=== PATIENT | female | born 2000 | race Caucasian/White ===

== ENCOUNTER 2024-08-15 10:39 | Emergency (ER) | payer MEDICAID, SELFPAY ==
[2024-08-15 10:54] VITALS: BP 140/79; PULSE 85; RESP 18; TEMP 36.7; O2SAT 99; BMI 27.5
--- NOTE | 2024-08-15 12:09 | ED_ITS ---
HPI - Wound/Laceration General Chief Complaint: Wound/Laceration Stated Complaint: Lac on arm from yesterday Time Seen by Provider: 08/15/24 11:16 Source: patient Mode of arrival: ambulatory Limitations: no limitations History of Present Illness ED Provider: MATHEUS ERNANDEZ PA-C HPI narrative: 24 year old female presents to the ED today for evaluation of left wrist laceration sustained last night. She reports accidentally cutting her left wrist with a knife last night while intoxicated. She states this was not an attempt at self harm and merely an accident. She did not come in for evaluation last night as she was intoxicated. She reports minimal pain to the area. Denies any surrounding redness, drainage or active bleeding. She believes her tetanus was updated within the last 5 years. Related Data Previous Rx's ?Medication ?Instructions ?Recorded amoxicillin 875 mg-potassium 1 tab PO BID 7 days #14 tabs 08/15/24 clavulanate 125 mg tablet Allergies Allergy/AdvReac Type Severity Reaction Status Date / Time haloperidol [From HALDOL] Allergy Severe ANAPHYLAXIS Verified 08/15/24 10:57 Review of Systems Review of Systems: Constitutional: No fever, chills, fatigue, night sweats, weight changes ENT/Mouth: No ear pain, hearing loss, nasal congestion, sinus pain, rhinorrhea, sore throat Eyes: No eye pain, swelling, redness, vision changes, discharge Cardio: No chest pain, palpitations, MAYNARD, orthopnea, peripheral edema Pulm: No SOB, cough, sputum, wheezing, dyspnea, hemoptysis GI: No nausea, vomiting, hematemesis, abdominal pain, diarrhea, constipation, hematochezia, melena : No irregular bleeding, dysuria, frequency, urgency, hesitancy, hematuria, flank pain, urinary flow changes, urinary incontinence or retention MSK: No back pain, neck pain, joint pain, myalgias Skin: No lesions, rashes, +wrist laceration Neuro: No weakness, numbness, paresthesias, LOC, dizziness, headache Psych: No anxiety/panic, depression, SI/HI, AH/VH All other systems reviewed and are negative. [facility] Past Medical History Attestation statement: The following information was validated with the patient. Source: old records reviewed and nursing notes reviewed Social History Social History Advance Directives: No Advance Directives Information Provided: Yes Do you have a plan to hurt others: No Plan Physical Exam Vital Signs: Vital Signs: Last Vital Signs Temp 98.1 F 08/15/24 10:54 Pulse 85 08/15/24 10:54 Resp 18 08/15/24 10:54 BP 140/79 H 08/15/24 10:54 Pulse Ox 99 08/15/24 10:54 O2 Del Method Room Air 08/15/24 10:54 BMI result Body Mass Index 27.5 hypertensive, vitals otherwise wnl General: Well appearing, in no acute distress. Skin: Warm, dry, intact. No rashes or lesions. Head: Normocephalic, atraumatic. Cardiac: Chest wall symmetric. RRR Lungs: Normal respiratory effort without accessory muscle use. CTA bilaterally? Back: No midline spinous or paraspinal tenderness. No step off deformity. Ext: +2cm superficial linear laceration noted to ventral aspect of left wrist, no foreign body. No active bleeding. Sensation intact. Full ROM intact to left wrist. 2+ radial and ulnar pulse intact. Cap refill less than 2 seconds. Neuro: AOx3. Normal speech. Ambulating with steady gait. Course Course Course Narrative: Patient states that she believes her tetanus was updated within the last 5 years and does not wish to have it updated today. Laceration extensively irrigated with saline and iodine. Laceration repaired. See procedure note. Patient tolerated well. Will start patient on prophylactic Augmentin. advised to return for suture removal. Patient has remained stable throughout ED visit today. Discussed worrisome signs and symptoms and when to return to the ED. All questions answered at this time. Patient is agreeable with disposition and stable for discharge. Medications Administered Discontinued Medications Generic Name Dose Route Start Last Admin Trade Name Freq PRN Reason Stop Dose Admin Lidocaine HCl 5 ml 08/15/24 12:11 08/15/24 12:34 Lidocaine Hcl 1 % Mpf 5 Ml Vial INFILTRATI 08/15/24 12:12 5 ml ONCE ONE Administration Ondansetron HCl 4 mg 08/15/24 13:19 08/15/24 13:26 Ondansetron Odt 4 Mg Tab.Rapdis TRANSLINGU 08/15/24 13:20 4 mg ONCE ONE Administration Medical Decision Making Medical Decision Making MDM Narrative: 24 year old female presents to the ED today for evaluation of left wrist lac eration sustained last night. Patient is hypertensive, vitals otherwise WNL. She is lying comfortably on the exam bed in no acute distress. On exam, there is a 2cm superficial linear laceration noted to ventral aspect of left wrist, no foreign body. No active bleeding. Sensation intact. Full ROM intact to left wrist. 2+ radial and ulnar pulse intact. Cap refill less than 2 seconds. Differential diagnosis includes abrasion, laceration. Unlikely ligament/tendon injury, fracture, neurovascular compromise, threat to limb. Plan for laceration repair and disposition. Differential Diagnosis Differential Diagnoses: The differential diagnosis associated with the presentation includes as above Admission/Observation Not indicated External Record Review External record reviewed: Inpatient record Prescription Management I considered prescription management with: Pain Medication and Antibiotic Social Determinants Patient?s care significantly limited by Social Determinants of Health including: Other Social Determinant of Health Procedures Laceration Laceration 1: Site: upper extremity (wrist) Side (If applicable): left Size (cm): 2 Description: linear Depth: simple, single layer Local Anesthetic: lidocaine 1% Amount of anesthesia used (mL): 5 Pre-repair: wound explored, irrigated extensively and deep structures in tact Skin layer closed with: nylon Size (cm): 4-0 Number of sutures: 6 Technique: simple, interrupted Critical Care Time Critical Care Time Critical Care Time: No Discharge Plan Discharge Clinical Impression: Laceration of left wrist Patient Disposition: Home, Self-Care Instructions: Care For Your Stitches (ED), Laceration (ED) Additional Instructions: You have been evaluated in the Emergency Department today for a laceration to your left wrist. Your laceration was repaired in the ED with 6 sutures. Please keep the area surrounding the laceration clean and dry. Do not wet the area for at least 24 hours. After that, you may wash the area and pat dry. Please keep the area out of the sunlight for the next 6 months to help prevent scarring.? If you develop redness or swelling at the site of your laceration please come back to the ER for a wound check. I recommend you take 600mg ibuprofen every 6 hours or tylenol 650mg every 6 hours as needed for pain. If needed, you can alternate these medications so that you take one medication every 3 hours. For example, at noon take ibuprofen, then at 3pm take tylenol, then at 6pm take ibuprofen. Please follow up with your primary care physician in 7-10 days for suture removal. You can also return to the ER or another urgent care facility for this service. Return to the Emergency Department if you experience discharge from your laceration, redness around your laceration, warmth around your laceration, fever, vomiting, numbness, tingling, or any other concerning symptoms. In the case of an emergency call 911. Prescriptions: New amoxicillin-pot clavulanate 875-125 mg tablet 1 tab PO BID 7 Days Qty: 14 0RF Referrals: [facility] [place] Group] [facility] [place] [facility] [Provider Group] [facility] [place] [facility] [Provider Group] Print Language: Kazakh
[2024-08-15] MEDS: Lidocaine HCl 1 % MPF 5 ML VIAL INFILTRATI (12:34)
[2024-08-15] MEDS: Ondansetron ODT 4 MG TAB.RAPDIS TRANSLINGU (13:26)
[2024-08-15 14:09] VITALS: BP 140/79; PULSE 85; RESP 18; TEMP 36.7; O2SAT 99
== END 2024-08-15 14:10 | disposition home or self-care (01) ==
PROVIDERS: Emergency Provider Emergency Medicine
DX: S61.512A Laceration without foreign body of left wrist, initial encounter (principal); M25.532 Pain in left wrist; W26.0XXA Contact with knife, initial encounter; Y93.89 Activity, other specified; Y92.89 Other specified places as the place of occurrence of the external cause; Y99.8 Other external cause status
CPT/HCPCS: 12001; 99282; 99284; J2003

== ENCOUNTER 2024-08-20 13:59 | Emergency (ER) | payer MEDICAID, SELFPAY ==
--- NOTE | ~2024-08-20 | XR_ITS ---
EXAMINATION: XR WRIST, LEFT CLINICAL INFORMATION: wound COMPARISON: None available. TECHNIQUE: PA, lateral, and oblique views of the left wrist. FINDINGS: The bones and soft tissues are normal. No fracture. Alignment is anatomic with normal joint spaces. No erosions or abnormal soft tissue calcifications. XR/XR wrist LT min 3V IMPRESSION: Normal left wrist. Electronically signed by: Jer Jain MD 08/20/2024 04:25 PM [facility]
[2024-08-20 14:23] VITALS: BP 127/90; PULSE 87; RESP 18; TEMP 37; O2SAT 100; BMI 25.8
--- NOTE | 2024-08-20 14:27 | ED.GENADULT ---
HPI - General Adult General Chief complaint: Wound/Laceration Stated complaint: infected stitches Time Seen by Provider: 08/20/24 16:06 Source: patient Limitations: no limitations History of Present Illness ED Provider: Lisa felton PA-C HPI narrative: 24-year-old female with a history of opiate abuse disorder on methadone, prior MRSA infection, presents with wound infection. Patient had a laceration repaired here in the ER on August 15. Since, the site has become red, swollen and warm. Denies fevers, denies purulent drainage from the site. At the time of the laceration repair the, the patient was placed on Augmentin. Related Data Previous Rx's ?Medication ?Instructions ?Recorded amoxicillin 875 mg-potassium 1 tab PO BID 7 days #14 tabs 08/15/24 clavulanate 125 mg tablet sulfamethoxazole 800 1 tab PO BID #14 tabs 08/20/24 mg-trimethoprim 160 mg tablet (Bactrim DS) Allergies Allergy/AdvReac Type Severity Reaction Status Date / Time haloperidol [From HALDOL] Allergy Severe ANAPHYLAXIS Verified 08/20/24 14:30 Review of Systems Review of Systems: Yes all other systems are reviewed and are negative Constitutional: Constitutional: Denies fatigue and Denies fever(s) Cardiovascular: Cardiovascular: Denies chest pain and Denies dyspnea Respiratory: Respiratory: Denies dyspnea Gastrointestinal: Gastrointestinal: Denies abdominal pain Musculoskeletal: Musculoskeletal: Denies arthralgias and Denies joint swelling Integumentary/Breasts: Skin/Breast: Reports erythema, Reports skin swelling and Reports wounds Endocrine: Endocrine: Denies fatigue PMFSH Past Medical History Attestation statement: The following information was validated with the patient. Social History Social History Advance Directives: No Physical Exam ED Vital Signs: Vital Signs - 24 hr 08/20/24 14:23 Temperature 98.6 F Pulse Rate 87 Respiratory Rate 18 Blood Pressure 127/90 H Pulse Oximetry 100 Oxygen Delivery Method Room Air BMI result Body Mass Index 25.8 Const Other: Patient is sleeping, I suspect she may be intoxicated, she has a friend at bedside who is not intoxicated, patient appears older than stated age, she readily wakes with verbal stimuli. Orientation/consciousness: patient oriented x3 Resp Other: Nonlabored respiration Cardio Other: Normal peripheral perfusion Skin Other: Warm dry no rash Neuro General: patient oriented x3, gait normal, no focal motor deficits and CN's II-XI intact bilaterally Extrem Other: Suture line along left wrist is erythematous, warm and indurated, the sutures are intact, no purulent drainage from the site Psych Other: Cooperative Course Course Course Narrative: This is an RME: Additional HPI, ROS, PE not included below will be deferred to primary provider. RME assessment and note performed by: Joyce Hammonds PA-C This is a [id number]-female, with a history endocarditis, substance abuse on methadone 100 mg, who presents to the ER with complaints of left wrist wound. Pt sustained a left wrist laceration on 08/15 and had sutures placed. She has been on augmentin which she has been taking with minimal relief. She went to urgent care and was told to come here for further evaluation. Plan: Labs, xr wrist Medical Decision Making Medical Decision Making MDM Narrative: 24-year-old female with a history of opiate abuse disorder on methadone, prior MRSA infection, presents with wound infection. Patient had a laceration repaired here in the ER on August 15. Since, the site has become red, swollen and warm. Denies fevers, denies purulent drainage from the site. At the time of the laceration repair the, the patient was placed on Augmentin. Problem: Substance abuse, MRSA History: Per patient and her friend I have considered the following differential diagnoses: Cellulitis, purulent cellulitis, wound dehiscence, osteomyelitis Plan: Screening labs including an x-ray of the wrist were obtained from triage. No abnormalities. There was no communication with the bone. The patient has cellulitis, I will broaden the coverage given her history of MRSA, I have viewed the site with bedside ultrasound, there was no discrete fluid collection to suggest an abscess. I also remove the sutures at this time, it is a nidus for infection. I have independently reviewed the following tests: Labs: No leukocytosis, not anemic, no electrolyte abnormality, X-ray left wrist: XR/XR wrist LT min 3V IMPRESSION: Normal left wrist. Lab Data 08/20/24 14:50 08/20/24 14:50 Labs: Lab Results 08/20/24 Range/Units 14:50 WBC 6.1 (4.8-10.8) X10*3/uL RBC 4.68 (4.20-5.50) X10*6/uL Hgb 12.3 (12.0-16.0) g/dl Hct 38.2 (37.0-47.0) % MCV 81.6 (80.0-98.0) fL MCH 26.3 L (27.0-33.0) pg MCHC 32.2 (31.0-35.0) g/dl RDW 14.4 (11.0-16.0) % Plt Count 277 (160-400) X10*3/uL MPV 9.0 L (9.4-12.3) fL Immature Gran % (Auto) 0.3 (0.0-0.4) % Neut % (Auto) 45.7 (45-73) % Lymph % (Auto) 39.0 (20-40) % [place] % (Auto) 12.5 H (2-11) % Eos % (Auto) 2.0 (0-4) % Baso % (Auto) 0.5 (0-2) % Lymph # (Auto) 2.4 (1.2-4.9) X10*3/uL [place] # (Auto) 0.8 (0.1-1.2) X10*3/uL Eos # (Auto) 0.1 (0.0-0.4) X10*3/uL Baso # (Auto) 0.0 (0.0-0.2) X10*3/uL Abs Immat Gran (auto) 0.02 (0.00-0.03) X10*3/uL Absolute Neuts (auto) 2.8 (2.0-8.3) x10*3/uL Absolute Nucleated RBC 0.000 (0.0-0.012) X10*3/uL Nucleated RBC % (auto) 0.0 (0.0-0.2) /100WBC Sodium 141 (135-145) mmol/L Potassium 4.3 (3.3-5.1) mmol/L Chloride 108 (96-108) mmol/L Carbon Dioxide 25 (22-29) mmol/L Anion Gap 12 (12-20) BUN 11 (9-16) mg/dL Creatinine 0.85 (0.5-1.4) mg/dL Estim Creat Clear Calc 109.4 Estimated GFR > 60 Random Glucose 96 (60-115) mg/dL Calcium 9.3 (8.4-10.2) mg/dL Total Bilirubin 0.3 (0.0-1.0) mg/dL Direct Bilirubin 0.1 (0.0-0.5) mg/dL AST 40 H (5-31) U/L ALT 39 H (0-31) U/L Alkaline Phosphatase 74 (39-117) U/L Total Protein 8.0 (6.5-8.0) g/dL Albumin 4.1 (3.5-5.0) g/dL Beta HCG, Quant < 2 mIU/mL Discharge Plan Discharge Clinical Impression: Cellulitis Patient Disposition: Home, Self-Care Instructions: Cellulitis (ED) Additional Instructions: You are being treated for cellulitis, the stitches were removed. Continue taking the antibiotic you were prescribed, I am adding an additional antibiotic, Bactrim. Take this medication as directed. Continue to follow up with your primary care provider for wound checks as needed. Prescriptions: New sulfamethoxazole-trimethoprim [Bactrim DS] 800-160 mg tablet 1 tab PO BID Qty: 14 0RF No Action amoxicillin-pot clavulanate 875-125 mg tablet 1 tab PO BID 7 Days Qty: 14 0RF Print Language: Colombian
[2024-08-20 15:05] LABS: MANUAL DIFF FLAG NO
[2024-08-20 15:06] LABS: Basophils Percent Auto 0.5 % (0-2); Eosinophils Absolute Auto 0.1 X10*3/uL (0.0-0.4); Hematocrit 38.2 % (37.0-47.0); Hemoglobin 12.3 g/dl (12.0-16.0); Imm Gran Abs Auto 0.02 X10*3/uL (0.00-0.03); Imm Gran Pct Auto 0.3 % (0.0-0.4); Lymphocytes Absolute Auto 2.4 X10*3/uL (1.2-4.9); Mean Corpuscular HGB Conc 32.2 g/dl (31.0-35.0); Mean Corpuscular Hemoglobin 26.3 pg (27.0-33.0); Mean Corpuscular Volume 81.6 fL (80.0-98.0); Monocytes Absolute Auto 0.8 X10*3/uL (0.1-1.2); Monocytes Percent Auto 12.5 % (2-11); Neutrophils Absolute Auto 2.8 x10*3/uL (2.0-8.3); Neutrophils Percent Auto 45.7 % (45-73); Platelet Count 277 X10*3/uL (160-400); Red Blood Count 4.68 X10*6/uL (4.20-5.50); Red Cell Distribution Width 14.4 % (11.0-16.0); White Blood Count 6.1 X10*3/uL (4.8-10.8)
[2024-08-20 15:37] LABS: Alanine Aminotransferase 39 U/L (0-31); Albumin Level 4.1 g/dL (3.5-5.0); Alkaline Phosphatase 74 U/L (39-117); Anion Gap 12 (12-20); Aspartate Amino Transferase 40 U/L (5-31); Bilirubin Direct 0.1 mg/dL (0.0-0.5); Bilirubin Total 0.3 mg/dL (0.0-1.0); Blood Urea Nitrogen 11 mg/dL (9-16); Calcium 9.3 mg/dL (8.4-10.2); Carbon Dioxide 25 mmol/L (22-29); Chloride 108 mmol/L (96-108); Creatinine Clr Calc Pharmacy 109.4; Estimated Glomerular Filt Rate > 60; Glucose Random 96 mg/dL (60-115); HCG Quantitative < 2 mIU/mL; Potassium 4.3 mmol/L (3.3-5.1); Sodium 141 mmol/L (135-145)
[2024-08-20] MEDS: Sulfamethox/Trimeth 800/160 TABLET 1 TAB PO (17:28)
[2024-08-20 17:34] VITALS: BP 118/78; PULSE 74; RESP 18; TEMP 37; O2SAT 96
== END 2024-08-20 17:35 | disposition home or self-care (01) ==
PROVIDERS: Physician Assistant Medical; Emergency Provider Emergency Medicine
DX: L03.114 Cellulitis of left upper limb (principal); Z48.02 Encounter for removal of sutures; S61.512A Laceration without foreign body of left wrist, initial encounter; W45.8XXD Other foreign body or object entering through skin, subsequent encounter; F19.10 Other psychoactive substance abuse, uncomplicated; F11.20 Opioid dependence, uncomplicated; Z86.14 Personal history of Methicillin resistant Staphylococcus aureus infection
CPT/HCPCS: 36415; 73110; 80048; 80076; 84702; 85025; 87040; 99283

== ENCOUNTER 2025-02-04 03:11 | Inpatient (IN) | payer SELFPAY ==
[2025-02-04] VITALS (9 sets, daily range): BP systolic 118–139; BP diastolic 71–92; PULSE 80–107; RESP 14–18; TEMP 36.7–37.7; O2SAT 97–100; BMI 23.0
--- NOTE | ~2025-02-04 | CT_ITS ---
CLINICAL HISTORY: cellulitism extensive swelling pain CT soft tissue neck with contrast Comparison: None Findings: Extensive induration and soft tissue swelling along the left aspect of the face and neck. There is diffuse induration within the subcutaneous fat within the submental region bilaterally, [id number]. Extends along the left pre mandibular and left pre maxillary regions. No discrete fluid collection seen to suggest abscess. Enlarged bilateral jugular lymph nodes, especially within the submental regions measuring up to 2.8 cm in transverse measurement. No associated bony destructive change. This induration extends to the deep soft tissues in the parapharyngeal space and retropharyngeal space. This is more pronounced on the left than on the right without discrete fluid collection. There is slight mass effect upon the upper airway without significant airway narrowing. Lung apices are clear. No acute fracture. IMPRESSION: Fairly extensive soft tissue swelling and induration within the subcutaneous fat and deeper soft tissues of the left face and neck as above without discrete abscess. Findings would be most characteristic of an extensive infectious process with reactive lymphadenopathy. This document has been electronically signed by: Ellis Roa MD on 02/04/2025 06:34:21
--- NOTE | 2025-02-04 03:20 | ECG_ITS ---
Test Reason : CHEST PAIN Blood Pressure : */* mmHG Vent. Rate : 88 BPM Atrial Rate : 88 BPM P-R Int : 138 ms QRS Dur : 90 ms QT Int : 366 ms P-R-T Axes : 50 66 47 degrees QTcB Int : 442 ms Normal sinus rhythm Normal ECG No previous ECGs available Referred By: Sharon Dodd Electronically Signed By: SALO CARRERA MD
--- NOTE | 2025-02-04 03:23 | ED_ITS ---
HPI - Skin/Abscess/Foreign Bdy General Chief complaint: Skin/Abscess/Foreign Body Stated complaint: abscess, swollen face Time Seen by Provider: 02/04/25 03:23 Source: patient Mode of arrival: ambulatory Limitations: no limitations History of Present Illness ED Provider: [employer] director HPI narrative: patient is a 25-year-old female with past medical history of asthma, endocarditis, pituitary microadenoma, bipolar disorder, HCV, substance use disorder, prior intravenous cocaine usage, opiate use disorder, reported history of MRSA presents emergency department for evaluation of concerning recently drained abscesses to chin 1st started about 5 days ago, drained clear/pus-like drainage now scabbed over but since yesterday has had extensive redness and swelling is extending down into the left anterolateral portion of her neck subjective fevers associated with this. she elected not to come to emergency department yesterday as she felt it was going to be too busy . Denies active IVDA, previously on methadone, stopped, unclear when or why from patient history. Additionally has fear of hospitals, reports a 9 month inpatient hospitalization years ago secondary to endocarditis with IVDA Related Data Home Medications ?Medication ?Instructions ?Recorded ?Confirmed No Known Home Meds 02/04/25 02/04/25 Allergies Allergy/AdvReac Type Severity Reaction Status Date / Time haloperidol [From HALDOL] Allergy Severe ANAPHYLAXIS Verified 02/04/25 03:16 [facility] Social History Social History Patient Tobacco Use Status: Never used Tobacco Smoked in Last 30 Days: Yes Use of substances other than those prescribed or required for medical reasons: No Advance Directives: No Advance Directives Information Provided: Yes Do you have a plan to hurt others: No Plan Nutrition Risks: No Nutritional Risk Physical Exam 2 Vital Signs: Vital Signs: Last Vital Signs Temp 98.6 F 02/04/25 16:10 Pulse 91 02/04/25 16:10 Resp 16 02/04/25 16:10 BP 137/79 02/04/25 16:10 Pulse Ox 100 02/04/25 16:10 O2 Del Method Room Air 02/04/25 16:10 BMI result Body Mass Index 23.0 Appearance: Alert.?Oriented to person, place and time. No acute distress.?Normal affect. Eyes: Pupils equal, round and reactive to light.? ENT: Pharynx normal.?? Uvula is midline. No trismus. No drooling. No induration of the soft palate. Has multiple dental caries including a cracked tooth #16 which she states is chronic in has not given her any issue for years no pain, no foul taste in the mouth Neck: mild decreased AROM with posterior flexion and rotation secondary to pain. Extensive swelling to the left submandibular region and extension down to left anterolateral neck, with overlying erythema as per photos below. CVS: Heart sounds normal. Normal heart rate and rhythm.? Pulses normal.?? Respiratory: No respiratory distress.? Lung sounds clear to auscultation bilaterally?? Abdomen: Soft and non-tender. Normoactive bowel sounds. Skin: Skin warm and dry.? Normal skin color.? ?? Extremities: No lower extremity edema.? Neuro: Moves all extremities spontaneously. Sensation intact bilaterally. No focal neuro deficits. Ambulates with normal steady gait. Course Reevaluation(s) Reevaluation #1: nursingStaff initially had difficulty obtaining IV access, ultrasound-guided access was eventually obtained in addition to serum labs. Patient to be signed out to my attending Dr. Henson pending labs, CT soft tissue neck, EKG Time: 04:16 Reevaluation #2: Dr. Henson: The patient was signed out to me at change of shift. The patient had received 2 g of IV cefazolin. Clinically she seems to have a large left-sided facial cellulitis. I also ordered 900 mg of clindamycin and IV vancomycin. A CT scan of the soft tissues of the neck with IV contrast was done. This shows extensive soft tissue swelling and induration within the subcutaneous fat and deeper soft tissues of the left face and neck without discrete abscess. On exam the patient has no elevation of the floor of the mouth. I think this is a bad facial cellulitis that probably started with some acne on her chin. Given the extensive nature of the infection I think the patient will require hospitalization for IV antibiotics. Time: 07:53 Medications Administered Generic Name Dose Route Start Last Admin Trade Name Freq PRN Reason Stop Dose Admin Enoxaparin Sodium 40 mg 02/04/25 11:00 02/04/25 11:17 Enoxaparin Sodium 40 Mg/0.4 Ml Syringe SUBCUT Not Given Q24H DANNY Ampicillin Sodium/Sulbactam 100 mls @ 200 mls/hr 02/04/25 11:00 02/04/25 12:01 Sodium 3 gm/ Sodium Chloride IV Infused Q6H DANNY Infusion Discontinued Medications Generic Name Dose Route Start Last Admin Trade Name Freq PRN Reason Stop Dose Admin Cefazolin Sodium 2 gm 02/04/25 03:21 02/04/25 04:24 Cefazolin Sodium 1 Gm Vial IVPUSH 02/04/25 03:22 Not Given ONCE ONE Sodium Chloride 2,177.25 mls @ 2,177.25 mls/hr 02/04/25 03:21 02/04/25 05:48 Ns 30 ml/kg infuse over 1 hr (2177.25 ml) 02/04/25 04:20 Infused IV Infusion .Q1H STA Cefazolin Sodium/Dextrose 2 gm in 50 mls @ 100 mls/hr 02/04/25 03:30 02/04/25 04:47 Ancef IV 02/04/25 03:59 Infused ONCE ONE Infusion Vancomycin HCl 1,000 mg/ 535 mls @ 267.5 mls/hr 02/04/25 04:44 02/04/25 08:50 Vancomycin HCl 750 mg/ Sodium IV 02/04/25 06:43 Infused Chloride ONCE ONE Infusion Clindamycin Phosphate 900 mg in 50 mls @ 50 mls/hr 02/04/25 04:47 02/04/25 06:44 Cleocin IV 02/04/25 05:46 Infused ONCE ONE Infusion Iohexol 60 ml 02/04/25 05:04 02/04/25 05:05 Iohexol 350 Mg/Ml 100 Ml Infus..Btl IV 02/04/25 05:05 60 ml ONCE ONE Administration Lidocaine HCl 10 ml 02/04/25 10:47 02/04/25 10:59 Lidocaine Hcl 1 % Mpf 5 Ml Vial INFILTRATI 02/04/25 10:48 10 ml ONCE ONE Administration Medical Decision Making Medical Decision Making MDM Narrative: patient is a 25-year-old female with past medical history of asthma, endocarditis, pituitary microadenoma, bipolar disorder, HCV, substance use disorder, prior intravenous cocaine usage, opiate use disorder, reported history of MRSA who presents emergency department for evaluation of 10 lesions reportedly started as abscess now with extensive swelling erythema and pain to the left submandibular region and moving down into the neck. She arrives slightly tachycardic, low-grade temp, endorsed fevers at home, sepsis alert has been called, patient received sepsis IV fluid bolus, will obtain blood cultures and lactic acid and covering with cefazolin. Will obtain CBC to evaluate for leukocytosis/ anemia, CMP and lipase to evaluate for abnormal electrolytes /abnormal renal function/ abnormal hepatic/biliary function, EKG and troponin to evaluate for ischemia/ACS. CT of the soft tissue neck to be obtained for further evaluation, has no compromise to the posterior oropharynx, has a soft lower palate, no endorsed chest pain or shortness of breath, lower suspicion for Antione's angina. Differential Diagnosis Differential Diagnoses: The differential diagnosis associated with the presentation includes ( See narrative above) Admission/Observation Consideration of admission/observation: Escalation of care including admission/observation considered Lab Data MDM Lab Attestation statement: I reviewed the patient's lab results. 02/04/25 04:11 02/04/25 04:11 Labs: Lab Results 02/04/25 Range/Units 04:11 WBC 9.0 (4.8-10.8) X10*3/uL RBC 4.03 L (4.20-5.50) X10*6/uL Hgb 10.6 L (12.0-16.0) g/dl Hct 31.6 L (37.0-47.0) % MCV 78.4 L (80.0-98.0) fL MCH 26.3 L (27.0-33.0) pg MCHC 33.5 (31.0-35.0) g/dl RDW 13.2 (11.0-16.0) % Plt Count 224 (160-400) X10*3/uL MPV 8.9 L (9.4-12.3) fL Immature Gran % (Auto) 0.4 (0.0-0.4) % Neut % (Auto) 75.6 H (45-73) % Lymph % (Auto) 14.5 L (20-40) % [place] % (Auto) 8.5 (2-11) % Eos % (Auto) 0.9 (0-4) % Baso % (Auto) 0.1 (0-2) % Lymph # (Auto) 1.3 (1.2-4.9) X10*3/uL [place] # (Auto) 0.8 (0.1-1.2) X10*3/uL Eos # (Auto) 0.1 (0.0-0.4) X10*3/uL Baso # (Auto) 0.0 (0.0-0.2) X10*3/uL Abs Immat Gran (auto) 0.04 H (0.00-0.03) X10*3/uL Absolute Neuts (auto) 6.8 (2.0-8.3) x10*3/uL Absolute Nucleated RBC 0.000 (0.0-0.012) X10*3/uL Nucleated RBC % (auto) 0.0 (0.0-0.2) /100WBC Sodium 139 (135-145) mmol/L Potassium 3.5 (3.3-5.1) mmol/L Chloride 105 (96-108) mmol/L Carbon Dioxide 27 (22-29) mmol/L Anion Gap 11 L (12-20) BUN 15 (9-16) mg/dL Creatinine 0.60 (0.5-1.4) mg/dL Estim Creat Clear Calc 153.6 Estimated GFR > 60 Random Glucose 116 H (60-115) mg/dL Lactic Acid 0.5 (0.5-2.0) mmol/L Calcium 9.2 (8.4-10.2) mg/dL Total Bilirubin 0.4 (0.0-1.0) mg/dL AST 54 H (5-31) U/L ALT 59 H (0-31) U/L Alkaline Phosphatase 90 (39-117) U/L Troponin I High Sens < 2.7 (<3.5-17.0) ng/L C-Reactive Protein 7.09 H (< or = 0.50) mg/dL Total Protein 6.9 (6.5-8.0) g/dL Albumin 3.8 (3.5-5.0) g/dL Beta HCG, Quant < 2 mIU/mL External Record Review External record reviewed: Outpatient record Chronic Conditions Patient?s care impacted by: Other ( see narrative above) Social Determinants Patient?s care significantly limited by Social Determinants of Health including: Inadequate housing and Alcoholism and drug addiction in family Critical Care Time Critical Care Time Critical Care Time: Yes Total Critical Care Time: 40 Attestation: I personally attest to this critical care time spent taking care of the patient exclusive of all other billable procedures was approximately 40 minutes including initial evaluation of patient, ordering tests, EKG interpretation, sepsis management,, documentation, re-evaluation. Discharge Plan Discharge Clinical Impression: Cellulitis of face Patient Disposition: Admitted As Inpatient
[2025-02-04 04:17] LABS: MANUAL DIFF FLAG NO
[2025-02-04] MEDS: ceFAZolin Sodium/Dextrose,Iso 2 GM/50 ML PIGGYBACK IV (04:17)
[2025-02-04 04:18] LABS: Basophils Percent Auto 0.1 % (0-2); Eosinophils Absolute Auto 0.1 X10*3/uL (0.0-0.4); Eosinophils Percent Auto 0.9 % (0-4); Hematocrit 31.6 % (37.0-47.0); Hemoglobin 10.6 g/dl (12.0-16.0); Imm Gran Abs Auto 0.04 X10*3/uL (0.00-0.03); Imm Gran Pct Auto 0.4 % (0.0-0.4); Lymphocytes Absolute Auto 1.3 X10*3/uL (1.2-4.9); Lymphocytes Percent Auto 14.5 % (20-40); Mean Corpuscular HGB Conc 33.5 g/dl (31.0-35.0); Mean Corpuscular Hemoglobin 26.3 pg (27.0-33.0); Mean Corpuscular Volume 78.4 fL (80.0-98.0); Mean Platelet Volume 8.9 fL (9.4-12.3); Monocytes Absolute Auto 0.8 X10*3/uL (0.1-1.2); Monocytes Percent Auto 8.5 % (2-11); Neutrophils Absolute Auto 6.8 x10*3/uL (2.0-8.3); Neutrophils Percent Auto 75.6 % (45-73); Platelet Count 224 X10*3/uL (160-400); Red Blood Count 4.03 X10*6/uL (4.20-5.50); Red Cell Distribution Width 13.2 % (11.0-16.0)
[2025-02-04] MEDS: 0.9 % Sodium Chloride 2,177.25 ML 2177.25 ML IV (04:20)
--- NOTE | 2025-02-04 04:31 | PC.NURSE ---
patient very difficult stick, needed ultrasound IV, abx given as soon as access obtained
--- NOTE | 2025-02-04 04:32 | PC.NURSE ---
due to difficulty obtaining IV access only one set of blood cultures obtained prior to abx,
[2025-02-04 04:41] LABS: Lactic Acid 0.5 mmol/L (0.5-2.0)
[2025-02-04 04:42] LABS: Alanine Aminotransferase 59 U/L (0-31); Albumin Level 3.8 g/dL (3.5-5.0); Anion Gap 11 (12-20); Aspartate Amino Transferase 54 U/L (5-31); Bilirubin Total 0.4 mg/dL (0.0-1.0); Blood Urea Nitrogen 15 mg/dL (9-16); Calcium 9.2 mg/dL (8.4-10.2); Carbon Dioxide 27 mmol/L (22-29); Chloride 105 mmol/L (96-108); Creatinine Clr Calc Pharmacy 153.6; Estimated Glomerular Filt Rate > 60; Glucose Random 116 mg/dL (60-115); Potassium 3.5 mmol/L (3.3-5.1); Sodium 139 mmol/L (135-145); Total Protein 6.9 g/dL (6.5-8.0)
[2025-02-04 04:47] LABS: Alkaline Phosphatase 90 U/L (39-117); Troponin-I High Sensitivity < 2.7 ng/L (<3.5-17.0)
[2025-02-04] MEDS: iohexoL 350 MG/ML 100 ML INFUS..BTL 60 ML IV (05:05)
[2025-02-04 05:12] LABS: C Reactive Protein 7.09 mg/dL (< or = 0.50); HCG Quantitative < 2 mIU/mL
--- NOTE | 2025-02-04 05:33 | MHC.EDTECH ---
Patient difficult stick ,was able to get drops of blood for 2nd set of blood culture ,Multiple tech tried to draw Patient with no success ,rn aware
[2025-02-04] MEDS: Clindamycin Phosphate/D5W 900 MG/50 ML PIGGYBACK 50 MG IV (05:46)
[2025-02-04] MEDS: vancomycin HCL 1,000 MG, vancomycin HCL 750 MG in 0.9 % Sodium Chloride 500 ML 267.5 MG IV (06:42)
--- NOTE | 2025-02-04 08:15 | PM.IMHP ---
History of Present Illness Date of Service: 02/04/25 Attending physician on admission: Sybil Tracy Chief Complaint: Facial infection Pt is a 25-year-old female with a PMH significant for?polysubstance use disorder, IVDU, hx of endocarditis in 2018, and hx of MRSA infection who presents to the ED with?facial and throat pain, redness, and swelling times 2-3 days. Pt is noted to be somnolent but arousable and answering questions appropriately, though falling back asleep during interview and exam. Pt reports pain and swelling in throat, though without significant difficulty swallowing or breathing. Able to eat and drink. Denies pain in the floor of her mouth. Was experiencing subjective fever and chills at home and nausea without vomiting. Denies shortness or breath or cough. No abdominal pain. Denies headache. Reports experienced similar episode of facial cellulitis a few years ago. Last snorted cocaine 2 weeks ago, though denies recent IVDU or heroin use. Previously on methadone, the pt unable to provide any clarity as to when or why she stopped taking it. In the ED pt was tachycardic up to 107 and with low-grade fever of 100. Labs were significant for microcytic anemia of 10.6/31.6 with MCV 78.4, mild transaminitis of AST of 54 and ALT 59, and CRP 7.09. No leukocytosis. No significant electrolyte abnormalities. Renal function baseline. Lactic acid WNL at 0.5. Initial troponin negative. Soft tissue neck CT showed fairly extensive soft tissue swelling and induration without abscess suggestive of cellulitis with reactive lymphadenopathy. EKG demonstrated normal sinus rhythm without evidence of significant ischemia. Pt was treated in the ED with IVF, cefazolin clindamycin, and vancomycin. Pt is admitted to the hospital for treatment and further evaluation of significant left face and neck cellulitis requiring IV antibiotics. Review of Systems Review of Systems: Negative except for that which is state in the HPI. [facility], LAT[facility] Social History Smoked in Last 30 Days: Yes Use of substances other than those prescribed or required for medical reasons: No Advance Directives: No Advance Directives Information Provided: Yes Do you have a plan to hurt others: No Plan Meds Allergies Allergy/AdvReac Type Severity Reaction Status Date / Time haloperidol [From HALDOL] Allergy Severe ANAPHYLAXIS Verified 02/04/25 03:16 Home Medications ?Medication ?Instructions ?Recorded ?Confirmed ?Last Taken ?Type No Known Home Meds 02/04/25 02/04/25 Unknown History Physical Exam Vital Signs and Narrative: Vital Signs: Last Vital Signs Temp 99.0 F 02/04/25 06:04 Pulse 88 02/04/25 07:47 Resp 16 02/04/25 07:47 BP 120/78 02/04/25 07:47 Pulse Ox 100 02/04/25 06:04 O2 Del Method Room Air 02/04/25 06:04 BMI result Body Mass Index 23.0 General: AOx3, somnolent but arousable, falling back asleep during interview and exam. In no acute distress ENT: Floor of mouth without erythema or swelling, nontender to palpation. Poor dentition. Protecting airway and handling secretions, speaking in full sentences. No drooling or muffled voice. Left side of chin and neck with significant erythema, warmth, and induration. Tender to palpation. Crusting lesions on chin. As pictured below. Resp: CTA bilaterally CVS: S1, S2, RRR, no murmur appreciated GI: +BS, NT, no distention Skin: Warm, dry Neuro: Cranial nerves II-XII grossly intact bilaterally. Motor grossly intact bilaterally Extremities: No edema Psych: Somnolent, cooperative, but limited historian. Results Labs 02/04/25 04:11 02/04/25 04:11 Labs: Laboratory Results - last 24 hr 02/04/25 04:11 MCV 78.4 L MCH 26.3 L MCHC 33.5 RDW 13.2 Plt Count 224 MPV 8.9 L Immature Gran % (Auto) 0.4 Neut % (Auto) 75.6 H Lymph % (Auto) 14.5 L [place] % (Auto) 8.5 Eos % (Auto) 0.9 Baso % (Auto) 0.1 Lymph # (Auto) 1.3 [place] # (Auto) 0.8 Eos # (Auto) 0.1 Baso # (Auto) 0.0 Abs Immat Gran (auto) 0.04 H Absolute Neuts (auto) 6.8 Absolute Nucleated RBC 0.000 Nucleated RBC % (auto) 0.0 Anion Gap 11 L Estim Creat Clear Calc 153.6 Estimated GFR > 60 Random Glucose 116 H Lactic Acid 0.5 Calcium 9.2 Total Bilirubin 0.4 AST 54 H ALT 59 H Alkaline Phosphatase 90 Troponin I High Sens < 2.7 C-Reactive Protein 7.09 H Total Protein 6.9 Albumin 3.8 Beta HCG, Quant < 2 Assessment and Plan (1) Cellulitis of face: Status: Acute (2) Cellulitis of neck: Status: Acute Plan Pt is a 25-year-old female with a PMH significant for?polysubstance use disorder, IVDU, hx of endocarditis in 2018, and hx of MRSA infection who presents to the ED with?facial and throat pain, redness, and swelling times 2-3 days. Pt is admitted to the hospital for treatment and further evaluation of significant left face and neck cellulitis likely requiring IV antibiotics. Left facial and neck cellulitis Pt with significant erythema, warmth, induration x2 days CT showing fairly extensive soft tissue swelling and induration within subcutaneous fat and deeper soft tissues of left face and neck without discrete abscess, no Antione's noted Unclear etiology: Odontogenic vs acne vs ?continued IVDU No sepsis: Tachycardia, but no fever, tachypnea, or leukocytosis; BP stable, lactic acid WNL Pt received IVF and started on broad-spectrum antibiotics in the ED Pt with hx of MRSA and similar skin infections in the past, hx of IVDU Will treat with Unasyn and vancomycin for now, started 02/04/2025 General surgery consult Follow blood cultures Polysubstance use disorder with hx of IVDU Reports last snorted cocaine 2 weeks ago, denies recent IVDU Pt somnolent but arousable, has not received any sedating medication in the ED, not on methadone Will check urine tox screen Addiction medicine consult Full Code Attending:?Dr. Tracy DVT Prophylaxis: Lovenox Pt will require a hospitalization of at least two nights for treatment of left face and neck cellulitis with induration. Given patient's hx of IVDU, MRSA infection with endocarditis, and significant area of involvement around the lower face and neck, pt will require hospital level care for administration of IV antibiotics and close monitoring of respiratory status to ensure airway does not become compromised. Quality Stroke Does the patient have a stroke diagnosis?: No VTE Prior VTE?: No VTE Risk Level:: Medical - moderate - high VTE Device Contraindication: Treatment Not Indicated VTE Drug Contraindication: N/A - Med Ordered
--- NOTE | 2025-02-04 08:46 | PHA.MEDREC ---
Addendum entered by Judy Guzman RPh 02/04/25 09:52: reviewed by [facility]. Original Note: Pharmacy Consult ? Medication Reconciliation Pharmacy has completed the medication reconciliation. Patient states she is not taking any medications.
--- NOTE | 2025-02-04 10:44 | PC.NURSE ---
Dr. Pires at bedside for eval.
--- NOTE | 2025-02-04 10:50 | PHA.PROG ---
Admission Date/Time: February 04, 2025 07:57 Indication: skin Weight in k.575 kg Adjusted body weight in Kg: [place] body weight in Kg: Obesity Dosing Indication % IBW: Serum Creatinine - Last 168 Hours 02/04/25 04:11 Creatinine 0.60 Estimated CrCl and GFR - Last 168 Hours 02/04/25 04:11 Estim Creat Clear Calc 153.6 Estimated GFR > 60 Vancomycin Loading Dose: 1750mg x 1 Current Vancomycin Dosing Regimen: 1250 Q12H Vancomycin Monitoring using AUC goal of 400 - 600 range with trough as surrogate marker: 463 mg/L Date and Time for next Vancomycin Level to be drawn: 02/05 @1700 Pharmacist Comments on Vancomycin Plan: Predicted trough of 12.9 mg/L Vancomycin dosing will take advantage of [employer] as a clinical decision support tool that uses Bayesian modeling to calculate individual patient's pharmacokinetic parameters and forecast the patient's drug concentration time course with the target goal AUC 24 range of 400 - 600 mg/L/hr.
[2025-02-04] MEDS: Lidocaine HCl 1 % MPF 5 ML VIAL 10 ML INFILTRATI (10:59)
--- NOTE | 2025-02-04 11:12 | P.CONGS_ITS ---
History of Present Illness Consult details Consult date: 02/04/25 Narrative: 25-year-old female with past medical history of asthma, endocarditis, pituitary microadenoma, bipolar disorder, HCV, substance use disorder, prior intravenous cocaine usage, opiate use disorder, here in the ER because of swelling, pain and tenderness in the left neck at the submandibular area. Currently, the patient does not seem to provide a good history. She is very drowsy and has answers to questions She has a reported history of MRSA presents emergency department for evaluation of concerning recently drained abscesses to chin about 5 days ago, drained clear/pus-like drainage secondary to endocarditis with IVDA She apparently had worsening of the swelling on the submandibular area. She denies having used this for IV access for her drug use. Review of Systems 2 Review of Systems: The patient not very communicative currently and does not provide much with regards to history and review of systems. Constitutional: Constitutional: Denies chills and Denies fever(s) PMFSH Social History Social History Patient Tobacco Use Status: Never used Tobacco Smoked in Last 30 Days: Yes Use of substances other than those prescribed or required for medical reasons: No Advance Directives: No Advance Directives Information Provided: Yes Do you have a plan to hurt others: No Plan Nutrition Risks: No Nutritional Risk Meds Allergies Allergy/AdvReac Type Severity Reaction Status Date / Time haloperidol [From HALDOL] Allergy Severe ANAPHYLAXIS Verified 02/04/25 03:16 Active Medications: Current Medications Acetaminophen (Acetaminophen 325 Mg Tablet) 650 mg PO Q6H PRN PRN Reason: Pain, Mild 1-3,fever,headache Calcium Carbonate (Calcium Carbonate 750 Mg Tab.Chew) 750 mg PO Q4H PRN PRN Reason: Heartburn Enoxaparin Sodium (Enoxaparin Sodium 40 Mg/0.4 Ml Syringe) 40 mg SUBCUT Q24H DANNY Ampicillin Sodium/Sulbactam (Sodium 3 gm/ Sodium Chloride) 100 mls @ 200 mls/hr IV Q6H DANNY Vancomycin HCl 1,250 mg/ (Sodium Chloride) 250 mls @ 166.667 mls/hr IV Q12H DANNY Magnesium Hydroxide (Milk Of Magnesia 30 Ml Oral.Susp) 30 ml PO DAILY PRN PRN Reason: Constipation Melatonin (Melatonin 3 Mg Tablet) 6 mg PO BEDTIME PRN PRN Reason: Insomnia Pharmacy Consult (Consult Rx Vancomycin Dosing) 1 each MISCELLANE DAILY PRN PRN Reason: Consult order Sodium Chloride (0.9 % Sodium Chloride Flush 3 Ml Syringe) 3 ml IVFLUSH QSHIFT DANNY Physical Exam 2 Vital Signs: Vital Signs: Last Vital Signs Temp 98.9 F 02/04/25 10:09 Pulse 84 02/04/25 10:09 Resp 18 02/04/25 10:09 BP 123/81 02/04/25 10:09 Pulse Ox 97 02/04/25 10:09 O2 Del Method Room Air 02/04/25 10:09 BMI result Body Mass Index 23.0 Const: Other: Drowsy General: no acute distress Neck: Other: Diffuse swelling, induration, left neck at the submandibular area, some redness, no obvious fluctuant area Resp: Effort & Inspection: normal respiratory effort Cardio: Rate: regular rate GI: Palpation (GI): Soft to palpation Results Labs 02/04/25 04:11 02/04/25 04:11 Labs: Abnormal lab results 02/04/25 Range/Units 04:11 RBC 4.03 L (4.20-5.50) X10*6/uL Hgb 10.6 L (12.0-16.0) g/dl Hct 31.6 L (37.0-47.0) % MCV 78.4 L (80.0-98.0) fL MCH 26.3 L (27.0-33.0) pg MPV 8.9 L (9.4-12.3) fL Neut % (Auto) 75.6 H (45-73) % Lymph % (Auto) 14.5 L (20-40) % Abs Immat Gran (auto) 0.04 H (0.00-0.03) X10*3/uL Anion Gap 11 L (12-20) Random Glucose 116 H (60-115) mg/dL AST 54 H (5-31) U/L ALT 59 H (0-31) U/L C-Reactive Protein 7.09 H (< or = 0.50) mg/dL Short CBC 02/04/25 Range/Units 04:11 WBC 9.0 (4.8-10.8) X10*3/uL Hgb 10.6 L (12.0-16.0) g/dl Hct 31.6 L (37.0-47.0) % Plt Count 224 (160-400) X10*3/uL BMP 02/04/25 04:11 Sodium 139 Potassium 3.5 Chloride 105 Carbon Dioxide 27 BUN 15 Creatinine 0.60 Calcium 9.2 Liver Function 02/04/25 Range/Units 04:11 Total Bilirubin 0.4 (0.0-1.0) mg/dL AST 54 H (5-31) U/L ALT 59 H (0-31) U/L Alkaline Phosphatase 90 (39-117) U/L Albumin 3.8 (3.5-5.0) g/dL All other labs normal. IMPRESSION: Fairly extensive soft tissue swelling and induration within the subcutaneous fat and deeper soft tissues of the left face and neck as above without discrete abscess. Findings would be most characteristic of an extensive infectious process with reactive lymphadenopathy. Assessment and Plan (1) Cellulitis of neck: Status: Acute She has this significant cellulitic changes and induration in the left neck as described above. Her CAT scan does not show an obvious fluid collection However, her it may be best to check for any fluid collection with fine needle aspiration. I explained to the technique of this procedure and reviewed the risks, benefits, and alternatives and she had given consent Needle aspiration with a gauge 18 needle was done in the area with multiple passes. There were no purulent fluid drained. The aspirate was bloody I then applied pressure dressings. She tolerated procedure well I would recommend continue with aggressive IV antibiotic treatment. This area to be monitored closely for clinical worsening as she may require consultation with I had neck surgeon/ENT. There is no obvious etiology currently as she denies IV access in the area Procedures Date of Service Date of Service: 02/06/25 Procedure Note Procedure Note: Procedure: Needle aspiration with a gauge 18 needle on the left neck The patient the patient is supine with the head turned to the right. The area of the cellulitis and induration was prepped and draped. Lidocaine 1% was used for local anesthesia. I then used a gauge 18 needle aspirate the area with multiple passes. There was no material drained. The aspirate was bloody I then removed the needle and applied dressings. She tolerated procedure well.
[2025-02-04] MEDS: Ampicillin Sodium/Sulbactam Na 3 GM in 0.9 % Sodium Chloride 100 ML IV ×2 (11:17→16:56)
--- NOTE | 2025-02-04 12:27 | PC.NURSE ---
Assumed care of pt at 1100. Pt arousable to verbal stimuli, lethargic, oriented when arousable, speaking in full sentences, respirations even and unlabored, no increased wob/sob noted, maintaining O2 sat >92% on RA, denies cp/sob. Swelling and redness noted to chin/face, airway patent, maintaining own airway, no distress. Pt requesting pain medicine- DONIS Judd made aware. Attempted to obtain urine drug screen, pt states she's unable to use the bathroom at this time. Call anthony within reach, all needs met at this time.
[2025-02-04] MEDS: 0.9 % Sodium Chloride Flush 3 ML SYRINGE IVFLUSH (16:58)
[2025-02-04 17:16] LABS: Amphetamine Screen Urine Not Detected (Not Detect); Barbiturates, Urine Not Detected (Not Detect); Benzodiazepines Screen Urine Not Detected (Not Detect); Buprenorphine Scr Not Detected (Not Detect); Cannabinoid Screen Urine Not Detected (Not Detect); Cocaine Screen Urine POSITIVE (Not Detect); Fentanyl, urine POSITIVE (Not Detect); Methadone Screen, Urine Not Detected (Not Detect); Opiate Screen Urine POSITIVE (Not Detect); Oxycodone Screen Urine Not Detected (Not Detect); Phencyclidine Screen Urine Not Detected (Not Detect)
--- NOTE | 2025-02-04 19:50 | PC.NURSE ---
Pt resting at the bedside. Greg sawyer scheduled for 1899 as pt is stating I want to leave [place] text sent to Dr. Mcdaniel. No new orders at this time. Monitoring is ongoing.
--- NOTE | 2025-02-04 19:57 | PC.NURSE ---
and PRADIPP at bedside.
--- NOTE | 2025-02-04 20:05 | PC.NURSE ---
U/S guided IV line removed. Pt tolerated well. Site is intact. Dressing applied.
--- NOTE | 2025-02-04 20:07 | P.DS_ITS ---
DS: Providers Provider Date of Service: 02/04/25 Date of admission: 02/04/25 07:57 Date of discharge: 02/04/25 Primary care physician: Unknown Physician Consults: 02/04/25 08:18 Addiction Medicine Provider Routine Consulting Provider: Addiction Covering Reason for consultation: Hx of IVDU not on methadone, unclear if still using 02/04/25 10:23 Consult to General Surgery Routine Consulting Provider: [facility] General Surgeons Reason for consultation: Facial and throat cellulitis w/deep tissue involvement but no abscess DS: Diagnosis Discharge Diagnosis (1) Cellulitis of neck: Status: Acute DS: Summary Hospital Course Hospital Course: From admission HPI: Pt is a 25-year-old female with a PMH significant for?polysubstance use disorder, IVDU, hx of endocarditis in 2018, and hx of MRSA infection who presents to the ED with?facial and throat pain, redness, and swelling times 2-3 days. Pt is noted to be somnolent but arousable and answering questions appropriately, though falling back asleep during interview and exam. Pt reports pain and swelling in throat, though without significant difficulty swallowing or breathing. Able to eat and drink. Denies pain in the floor of her mouth. Was experiencing subjective fever and chills at home and nausea without vomiting. Denies shortness or breath or cough. No abdominal pain. Denies headache. Reports experienced similar episode of facial cellulitis a few years ago. Last snorted cocaine 2 weeks ago, though denies recent IVDU or heroin use. Previously on methadone, the pt unable to provide any clarity as to when or why she stopped taking it. In the ED pt was tachycardic up to 107 and with low-grade fever of 100. Labs were significant for microcytic anemia of 10.6/31.6 with MCV 78.4, mild transaminitis of AST of 54 and ALT 59, and CRP 7.09. No leukocytosis. No significant electrolyte abnormalities. Renal function baseline. Lactic acid WNL at 0.5. Initial troponin negative. Soft tissue neck CT showed fairly extensive soft tissue swelling and induration without abscess suggestive of cellulitis with reactive lymphadenopathy. EKG demonstrated normal sinus rhythm without evidence of significant ischemia. Pt was treated in the ED with IVF, cefazolin clindamycin, and vancomycin. Pt is admitted to the hospital for treatment and further evaluation of significant left face and neck cellulitis requiring IV antibiotics. Hospital course: Pt initially somnolent but arousable, though eventually became more awake and alert during the day. Was noted to go into the bathroom with her bag and initially refused to provide urine sample. Patient's belongings intake was eventually taken and belongings were searched where packages suspicious for heroin or found. Pt eventually admitted that she has been snorting heroin daily, though continued to deny any IVDU. Pt threatened to leave AMA multiple times during hospital stay, though was initially convinced to stay. Pt was given Ativan for anxiety, though refused methadone. Pt has been told multiple times of the severity of her infection that could include airway compromise and suffocation and eventual . However, pt eventually could no longer be convinced to stay and elected to leave AMA despite knowing the risks. Will send prescription for doxycycline and Augmentin that pt should take twice a day for the next 10 days. Time Attestation Discharge Coordination Time (in mins): 35 Quality: Safe Use of Opioids Does Pt have an Active Cancer Diagnosis on the Problem List?: No Quality: Stroke Does the patient have a stroke diagnosis?: No Physical Exam Vital Signs: Vital Signs: Last Vital Signs Temp 98.0 F 02/04/25 17:04 Pulse 80 02/04/25 17:04 Resp 16 02/04/25 17:04 BP 118/71 02/04/25 17:04 Pulse Ox 98 02/04/25 17:04 O2 Del Method Room Air 02/04/25 17:04 BMI result Body Mass Index 23.0 Pt left AMA DS: Data Data Completed and Pending Labs on day of discharge: Laboratory Results - last 24 hr 02/04/25 02/04/25 04:11 16:59 WBC 9.0 RBC 4.03 L Hgb 10.6 L Hct 31.6 L MCV 78.4 L MCH 26.3 L MCHC 33.5 RDW 13.2 Plt Count 224 MPV 8.9 L Immature Gran % (Auto) 0.4 Neut % (Auto) 75.6 H Lymph % (Auto) 14.5 L [place] % (Auto) 8.5 Eos % (Auto) 0.9 Baso % (Auto) 0.1 Lymph # (Auto) 1.3 [place] # (Auto) 0.8 Eos # (Auto) 0.1 Baso # (Auto) 0.0 Abs Immat Gran (auto) 0.04 H Absolute Neuts (auto) 6.8 Absolute Nucleated RBC 0.000 Nucleated RBC % (auto) 0.0 Sodium 139 Potassium 3.5 Chloride 105 Carbon Dioxide 27 Anion Gap 11 L BUN 15 Creatinine 0.60 Estim Creat Clear Calc 153.6 Estimated GFR > 60 Random Glucose 116 H Lactic Acid 0.5 Calcium 9.2 Total Bilirubin 0.4 AST 54 H ALT 59 H Alkaline Phosphatase 90 Troponin I High Sens < 2.7 C-Reactive Protein 7.09 H Total Protein 6.9 Albumin 3.8 Beta HCG, Quant < 2 Urine Opiates Screen POSITIVE H Ur Buprenorphine Scrn Not Detected Ur Oxycodone Screen Not Detected Urine Methadone Screen Not Detected Urine Fentanyl Screen POSITIVE H Ur Barbiturates Screen Not Detected Ur Phencyclidine Scrn Not Detected Ur Amphetamines Screen Not Detected U Benzodiazepines Scrn Not Detected Urine Cocaine Screen POSITIVE H U Marijuana (THC) Screen Not Detected Discharge Plan Discharge Patient Disposition: Left Against Medical Advice Discharge Diagnosis: Left facial and neck cellulitis Referrals: Physician,Unknown J [Primary Care Provider] - 1 Week Discharge Medications: New doxycycline hyclate 100 mg capsule 100 mg PO BID Qty: 20 0RF Rx Instructions: Take one capusule twice a day for the next 10 days amoxicillin-pot clavulanate [Augmentin] 500-125 mg tablet 1 tab PO BID Qty: 20 0RF Rx Instructions: Take one tablet twice a day for the next 10 days Discharge Orders: Discharge Order (Routine); Ordered 02/04/25 Ordered By: Chantal Chacko Stand Alone Forms: Against Medical Advice Print Language: Divehi Care Plan Goals: Pt left AMA Health Concerns: Worsening neck cellulitis Compromised airway Plan of Treatment: Take Augmentin and doxy twice a day for the next 10 days Assessment: See discharge summary Discharge Date/Time: 02/05/25 00:51
== END 2025-02-05 00:51 | disposition left against medical advice (07) | DRG 603 ==
LOC: HO.ED 07:37 → HO.EDOVER 07:57 → HO.S3 19:34 → HO.EDOVER 20:37
PROVIDERS: Nurse Practitioner Family; Student in an Organized Health Care Education/Training Program; Admitting Provider Family Medicine; Emergency Provider Emergency Medicine; Visit Provider Student in an Organized Health Care Education/Training Program
DX: L03.211 Cellulitis of face (principal); L03.221 Cellulitis of neck; J45.909 Unspecified asthma, uncomplicated; Z86.14 Personal history of Methicillin resistant Staphylococcus aureus infection
CPT/HCPCS: 36415; 70491; 80053; 80307; 83605; 84484; 84702; 85025; 86140; 87040; 93005; 99285; J0295; J0690; J0736; J2003; J3370; Q9967

== ENCOUNTER → 2025-02-04 03:20 | Outpatient (BNV) | payer SELFPAY | PROVIDERS: Admitting Provider Family Medicine; Emergency Provider Emergency Medicine; Visit Provider Internal Medicine Cardiovascular Disease | DX: R07.9 Chest pain, unspecified (principal) | CPT/HCPCS: 93010 ==

== ENCOUNTER → 2025-02-04 03:29 | Outpatient (BNV) | payer SELFPAY | PROVIDERS: Emergency Provider Emergency Medicine; Visit Provider Radiology Diagnostic Radiology | DX: R22.0 Localized swelling, mass and lump, head (principal) | CPT/HCPCS: 70491 ==

== ENCOUNTER → 2025-02-04 07:57 | Outpatient (BNV) | payer SELFPAY | PROVIDERS: Admitting Provider Family Medicine; Emergency Provider Emergency Medicine; Visit Provider Surgery | DX: L03.221 Cellulitis of neck (principal) | CPT/HCPCS: 10160; 99222 ==

== ENCOUNTER → 2025-02-04 07:57 | Outpatient (BNV) | payer SELFPAY | PROVIDERS: Admitting Provider Family Medicine; Emergency Provider Emergency Medicine; Visit Provider Student in an Organized Health Care Education/Training Program | DX: L03.211 Cellulitis of face (principal); L03.221 Cellulitis of neck | CPT/HCPCS: 99239; 99499 ==

== ENCOUNTER → 2025-03-26 22:02 | Outpatient (BNV) | payer SELFPAY | PROVIDERS: Visit Provider Radiology Diagnostic Radiology | DX: S09.90XA Unspecified injury of head, initial encounter (principal) | CPT/HCPCS: 70450; 72125 ==

== ENCOUNTER 2025-03-26 22:57 | Emergency (ER) | payer SELFPAY ==
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
[2025-03-26 21:46] VITALS: BP 123/87; BP 127/74; PULSE 71; PULSE 72; RESP 14; TEMP 36.6; O2SAT 96; O2SAT 97; BMI 27.4
--- NOTE | 2025-03-26 22:02 | PC.NURSE ---
pt to ed bed 19 upon arrival, noted to be resting comfortably on ems stretcher. She was noted to be solmnolent during triage, able to answer all questions presented once awake. Denies ETOH or substance use today although she presents with pinpoint pupils. accounting analyst spoke with CLARY Diaz to make her aware of the pt's condition and events leading up to today's visit. CLARY says she will be to bedside for primary eval.
[2025-03-26 22:24] LABS: MANUAL DIFF FLAG NO
[2025-03-26 22:25] LABS: Hematocrit 33.1 % (37.0-47.0); Hemoglobin 11.0 g/dl (12.0-16.0); Imm Gran Abs Auto 0.00 X10*3/uL (0.00-0.03); Imm Gran Pct Auto 0.0 % (0.0-0.4); Lymphocytes Absolute Auto 2.2 X10*3/uL (1.2-4.9); Mean Corpuscular HGB Conc 33.2 g/dl (31.0-35.0); Mean Corpuscular Hemoglobin 26.4 pg (27.0-33.0); Mean Corpuscular Volume 79.6 fL (80.0-98.0); NRBC Abs Auto 0.000 X10*3/uL (0.0-0.012); NRBC Pct Auto 0.0 /100WBC (0.0-0.2); Platelet Count 160 X10*3/uL (160-400); Red Blood Count 4.16 X10*6/uL (4.20-5.50); White Blood Count 4.9 X10*3/uL (4.8-10.8)
[2025-03-26 22:44] LABS: Alanine Aminotransferase 80 U/L (0-31); Albumin Level 3.8 g/dL (3.5-5.0); Alkaline Phosphatase 70 U/L (39-117); Anion Gap 8 (12-20); Aspartate Amino Transferase 65 U/L (5-31); Blood Urea Nitrogen 8 mg/dL (9-16); Calcium 8.6 mg/dL (8.4-10.2); Carbon Dioxide 26 mmol/L (22-29); Chloride 110 mmol/L (96-108); Creatinine Clr Calc Pharmacy 156.7; Estimated Glomerular Filt Rate > 60; Magnesium 1.8 mg/dL (1.6-2.6); Potassium 3.7 mmol/L (3.3-5.1); Sodium 140 mmol/L (135-145); Total Protein 6.4 g/dL (6.5-8.0)
[2025-03-27 02:17] VITALS: BP 118/80; PULSE 81; RESP 16; TEMP 36.4; O2SAT 97
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
[2025-03-27 04:26] VITALS: BP 124/68; PULSE 69; RESP 14; TEMP 36.4; O2SAT 99
[2025-03-27 06:35] VITALS: O2SAT 99
[2025-03-27 06:37] VITALS: BP 141/89; PULSE 63; RESP 18; TEMP 36.8; O2SAT 97
[2025-03-27 07:03] LABS: Cannabinoid Screen Urine Not Detected (Not Detect)
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
[2025-03-27 08:53] VITALS: BP 125/85; PULSE 80; RESP 18; O2SAT 99
[2025-03-27 09:19] VITALS: BP 125/85; PULSE 80; RESP 18; TEMP -17.7; TEMP 0; O2SAT 99
== END 2025-03-27 09:20 | disposition home or self-care (01) ==
PROVIDERS: Physician Assistant Medical; Emergency Provider Emergency Medicine
DX: S00.03XA Contusion of scalp, initial encounter (principal); S20.411A Abrasion of right back wall of thorax, initial encounter; V23.49XA Other motorcycle driver injured in collision with car, pick-up truck or van in traffic accident, initial encounter; F19.10 Other psychoactive substance abuse, uncomplicated; Y93.89 Activity, other specified; Y92.414 Local residential or business street as the place of occurrence of the external cause; Y99.9 Unspecified external cause status
CPT/HCPCS: 36415; 70450; 72125; 80053; 80307; 83735; 84702; 85025; 99284; 99285